=== PATIENT | female | born 1980 | race Caucasian/White ===

== ENCOUNTER 2016-12-15 09:55 | Emergency (ER) | payer MEDICAID | END 2016-12-15 11:30 | disposition home or self-care (01) | LOC: FASTR 09:55 | DX: J02.9 Acute pharyngitis, unspecified (principal); J30.1 Allergic rhinitis due to pollen; E78.00 Pure hypercholesterolemia, unspecified; F17.210 Nicotine dependence, cigarettes, uncomplicated | CPT/HCPCS: 87804; 87880 ==

== ENCOUNTER 2017-01-01 12:08 | Emergency (ER) | payer MEDICAID ==
[2017-01-01] MEDS ORDERED: ONDANSETRON ODT 4 MG TAB ONE (15:12)
== END 2017-01-01 15:22 | disposition home or self-care (01) ==
LOC: ER 12:08
DX: J20.8 Acute bronchitis due to other specified organisms (principal); J00 Acute nasopharyngitis [common cold]; J01.90 Acute sinusitis, unspecified; Z87.891 Personal history of nicotine dependence
CPT/HCPCS: 71020; 87804; 87880; 93005